=== PATIENT | male | born 2000 | race Caucasian/White ===

== ENCOUNTER 2024-07-11 19:14 | Emergency (ER) | payer SELFPAY ==
--- NOTE | ~2024-07-11 | XR_ITS ---
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 RESULT: Lines, tubes, and devices: None. Lungs and pleura: Clear. Cardiomediastinal silhouette: Unremarkable. Other: No acute osseous or upper abdominal finding. IMPRESSION: No acute cardiopulmonary process. Reviewed, dictated and finalized at location K. K ENGINE ASSEMBLER
[2024-07-11 19:21] VITALS: BP 154/112; PULSE 126; RESP 21; TEMP 38.1; O2SAT 98
[2024-07-11 20:03] LABS: Influenza A QL RT-PCR Positive (Negative); Influenza B QL RT-PCR Negative (Negative); RSV RNA, RT-PCR Negative (Negative); SARS-CoV-2 RNA PCR Negative (Negative)
[2024-07-11] MEDS: IBUPROFEN 600 MG TABLET PO (20:10)
[2024-07-11 20:38] LABS: Strep Group A RT-PCR NOT DETECTED (Negative)
--- NOTE | 2024-07-11 21:15 | ED_ITS ---
HPI - General Adult General Chief complaint: Shortness of Breath/Dyspnea Stated complaint: SOB x3 days Time Seen by Provider: 07/11/24 20:02 History of Present Illness HPI narrative: 23-year-old male present to the emergency department for evaluation for cough congestion fever and body aches. Patient states he did have a viral illness approximately 3 weeks ago but did improve and then began to have worsening symptoms on Wednesday. Related Data Allergies Allergy/AdvReac Type Severity Reaction Status Date / Time acetaminophen (From Lortab) Allergy Severe Swelling Verified 07/11/24 19:16 of Lip/Tongue/Throat hydrocodone Allergy Severe Swelling Verified 07/11/24 19:16 of Lip/Tongue/Throat Review of Systems Review of Systems: All systems reviewed & are unremarkable except as noted in HPI and below Exam Narrative: APPEARANCE: Ill-appearing HEAD: normocephalic, atraumatic. EYES: PERRLA/EOMI, conjunctivae clear. NOSE: Normal no drainage EARS:TMS clear with good light reflex. THROAT: Pharynx clear, no exudate. NECK: Supple. No adenopathy, no masses. RESPIRATORY: Airway patent, respirations nonlabored. Clear to auscultation bilaterally, no rales, rhonchi, wheezing. CARDIOVASCULAR: Regular rate and rhythm without murmurs rubs or gallops. ABDOMINAL: Soft, nontender, nondistended, normal bowel sounds MUSCULOSKELETAL: Moves all extremities. Strength/ROM intact, No edema, No calf tenderness. NEURO: Alert. Cranial nerves II through XII intact. Grossly intact SKIN: Warm, dry. Normal Color Course Vital Signs Vital signs: Vital Signs Temperature 100.5 F H 07/11/24 19:21 Pulse Rate 126 H 07/11/24 19:21 Respiratory Rate 21 H 07/11/24 19:21 Blood Pressure 154/112 H 07/11/24 19:21 Pulse Oximetry 98 07/11/24 19:21 Oxygen Delivery Room Air 07/11/24 19:21 Temperature 100.5 F H 07/11/24 19:21 Pulse Rate 126 H 07/11/24 19:21 Respiratory Rate 21 H 07/11/24 19:21 Blood Pressure 154/112 H 07/11/24 19:21 Pulse Oximetry 98 07/11/24 19:21 Oxygen Delivery Room Air 07/11/24 19:21 Medical Decision Making MDM Narrative Medical decision making narrative: 23-year-old male present to the emergency department for evaluation for cough congestion fever and for body aches. Patient was positive for influenza A negative for influenza B RSV COVID and strep. Chest x-ray shows no acute cardiopulmonary abnormality. Patient will be provided symptomatic treatment for influenza A. Patient was updated on the results of his workup patient was comfortable the plan for discharge and close follow-up. Differential Diagnosis Differential Diagnosis: COVID, RSV, influenza, pneumonia Vital Signs Vital Signs: Vital Signs Temperature 100.5 F H 07/11/24 19:21 Pulse Rate 126 H 07/11/24 19:21 Respiratory Rate 21 H 07/11/24 19:21 Blood Pressure 154/112 H 07/11/24 19:21 Pulse Oximetry 98 07/11/24 19:21 Oxygen Delivery Room Air 07/11/24 19:21 Temperature 100.5 F H 07/11/24 19:21 Pulse Rate 126 H 07/11/24 19:21 Respiratory Rate 21 H 07/11/24 19:21 Blood Pressure 154/112 H 07/11/24 19:21 Pulse Oximetry 98 07/11/24 19:21 Oxygen Delivery Room Air 07/11/24 19:21 Lab Data Labs: Lab Results 07/11/24 07/11/24 Range/Units 19:23 20:09 Influenza A (RT-PCR) Positive A (Negative) Influenza B (RT-PCR) Negative (Negative) RSV (RT-PCR) Negative (Negative) SARS-CoV-2 RNA (RT-PCR) Negative (Negative) Group A Strep (PCR) Not detected (Negative) Imaging Data Radiologist's impression: Impressions Chest X-Ray 07/11/24 21:02 IMPRESSION: No acute cardiopulmonary process. Discharge Plan Discharge Clinical Impression: Influenza A Patient Disposition: Home, Self-Care Condition: Stable Instructions: Antibiotic Form, Influenza (ED) Additional Instructions: Tylenol and ibuprofen for fever and for body aches, albuterol inhaler for cliff rtness of breath and wheeze. Tessalon Perles for cough. Have close follow-up with your primary care physician. Patient Language: [place] Prescriptions: New benzonatate 100 mg capsule 100 mg PO TID PRN (Reason: cough) Qty: 14 0RF albuterol sulfate 90 mcg/actuation HFA aerosol inhaler 1 puff inhalation QID Qty: 6.7 0RF Follow-up/Referrals: PHYSICIAN,FUND DEVELOPMENT MANAGER [Primary Care Provider] -
== END 2024-07-11 21:50 | disposition home or self-care (01) ==
PROVIDERS: Emergency Medicine; Emergency Provider Emergency Medicine
DX: J10.1 Influenza due to other identified influenza virus with other respiratory manifestations (principal); Z20.822 Contact with and (suspected) exposure to COVID-19
CPT/HCPCS: 71045; 87637; 87651; 99283; A9270